=== PATIENT | female | born 1930 | race Caucasian/White ===

== ENCOUNTER → 2016-10-14 | Outpatient (CLI) | payer MEDICARE, OTHER ==
[~2016-10-14] MED LIST: AZIT250T74 PO; CARD120C4 PO; CLON.1 PO; COMB0.2S EACH EYE; FLOV220A INH; LATA0.00 OP; LEVO.125 PO; NEXI10GR PO; NOVO7030P2 SQ; PRED10PA PO; ROSU5 PO; SODI1 PO; TAB-TAB PO; TIMO0.5S29 OP
[2016-10-14 11:15] LABS: HEMATOCRIT 28.4 % (35.0-46.0); MEAN CELL VOLUME 79.9 FL (80.0-100.0); MEAN CORPUSCULAR HEMOGLOBIN 25.6 PG (27.0-34.0); MEAN CORPUSCULAR HGB CONC 32.1 % (32.0-36.0); RED BLOOD COUNT 3.55 MIL/MM3 (4.00-5.30); WHITE BLOOD COUNT 10.3 TH/MM3 (4.0-11.0)
[2016-10-14 11:16] LABS: AUTOMATED NEUTROPHIL # 7.9 TH/MM3 (1.8-7.7); BASOPHIL # 0.1 TH/MM3 (0-0.2); BASOPHIL % 0.6 % (0.0-2.0); EOSINOPHIL # 0.2 TH/MM3 (0-0.4); EOSINOPHIL % 1.6 % (0.0-4.0); HEMO FLAGS DIFF FINAL; LYMPH % 13.7 % (9.0-44.0); LYMPHOCYTE # 1.4 TH/MM3 (1.0-4.8); MONO % 7.5 % (0.0-8.0); NEUT % 76.6 % (16.0-70.0); PLATELET COUNT 471 TH/MM3 (150-450); RED CELL DISTRIBUTION WIDTH 16.3 % (11.6-17.2)
[2016-10-14 11:36] LABS: ALKALINE PHOSPHATASE 138 U/L (45-117); ALT (GPT) 12 U/L (10-53); ANION GAP 9 MEQ/L (5-15); AST (GOT) 14 U/L (15-37); BICARBONATE 27.8 MEQ/L (21.0-32.0); BLOOD UREA NITROGEN 21 MG/DL (7-18); CHLORIDE 98 MEQ/L (98-107); FERRITIN 4 NG/ML (8-252); GLOMERULAR FILTRATION RATE 40 ML/MIN (>89); GLUCOSE,FASTING 131 MG/DL (74-99); HDL CHOLESTEROL 86.4 MG/DL (40.0-60.0); LDL CHOLESTEROL 66 MG/DL (0-99); POTASSIUM 4.3 MEQ/L (3.5-5.1); SODIUM (NA) 135 MEQ/L (136-145); TOTAL BILIRUBIN ADULT 0.2 MG/DL (0.2-1.0)
[2016-10-14 12:12] LABS: HEMOGLOBIN A1a 1.1 %; HEMOGLOBIN A1b 2.2 %; HEMOGLOBIN Ao 82.2 %; HEMOGLOBIN LA1C 2.1 %; HEMOGLOBIN P3 4.5 %
== END ==
LOC: PLAB 08:33
PROVIDERS: ATTEND Family Medicine
DX: E11.42 Type 2 diabetes mellitus with diabetic polyneuropathy (principal); E78.5 Hyperlipidemia, unspecified; I10 Essential (primary) hypertension; E03.9 Hypothyroidism, unspecified; E46 Unspecified protein-calorie malnutrition; E66.9 Obesity, unspecified; E55.9 Vitamin D deficiency, unspecified; D64.9 Anemia, unspecified; Z51.81 Encounter for therapeutic drug level monitoring; Z79.4 Long term (current) use of insulin
CPT/HCPCS: 36415; 80053; 80061; 82306; 82728; 83036; 84443; 85025

== ENCOUNTER → 2016-11-10 | Outpatient (CLI) | payer MEDICARE, OTHER ==
[2016-11-10 10:09] LABS: AUTOMATED NEUTROPHIL # 6.9 TH/MM3 (1.8-7.7); BASOPHIL # 0.1 TH/MM3 (0-0.2); BASOPHIL % 0.7 % (0.0-2.0); EOSINOPHIL # 0.2 TH/MM3 (0-0.4); EOSINOPHIL % 2.3 % (0.0-4.0); HEMATOCRIT 29.6 % (35.0-46.0); HEMO FLAGS DIFF FINAL; LYMPH % 16.8 % (9.0-44.0); LYMPHOCYTE # 1.6 TH/MM3 (1.0-4.8); MEAN CELL VOLUME 79.8 FL (80.0-100.0); MEAN CORPUSCULAR HEMOGLOBIN 25.8 PG (27.0-34.0); MEAN CORPUSCULAR HGB CONC 32.3 % (32.0-36.0); MONO % 7.7 % (0.0-8.0); NEUT % 72.5 % (16.0-70.0); PLATELET COUNT 436 TH/MM3 (150-450); RED CELL DISTRIBUTION WIDTH 16.7 % (11.6-17.2); WHITE BLOOD COUNT 9.5 TH/MM3 (4.0-11.0)
[2016-11-10 10:40] LABS: ANION GAP 8 MEQ/L (5-15); BICARBONATE 28.7 MEQ/L (21.0-32.0); BLOOD UREA NITROGEN 20 MG/DL (7-18); CHLORIDE 97 MEQ/L (98-107); FERRITIN 8 NG/ML (8-252); GLOMERULAR FILTRATION RATE 37 ML/MIN (>89); GLUCOSE,FASTING 131 MG/DL (74-99); POTASSIUM 4.1 MEQ/L (3.5-5.1); SODIUM (NA) 134 MEQ/L (136-145); TRANSFERRIN IRON PROFILE 260 MG/DL (200-360)
== END ==
LOC: PLAB 07:50
PROVIDERS: ATTEND Family Medicine
DX: N18.3 Chronic kidney disease, stage 3 (moderate) (principal); D63.1 Anemia in chronic kidney disease; D50.9 Iron deficiency anemia, unspecified; Z51.81 Encounter for therapeutic drug level monitoring
CPT/HCPCS: 36415; 80048; 82728; 83540; 83550; 83970; 85025

== ENCOUNTER → 2016-12-15 | Outpatient (CLI) | payer MEDICARE, OTHER ==
[2016-12-15 10:53] LABS: AUTOMATED NEUTROPHIL # 7.9 TH/MM3 (1.8-7.7); BASOPHIL % 0.4 % (0.0-2.0); EOSINOPHIL # 0.2 TH/MM3 (0-0.4); EOSINOPHIL % 2.1 % (0.0-4.0); HEMO FLAGS DIFF FINAL; LYMPH % 13.7 % (9.0-44.0); LYMPHOCYTE # 1.4 TH/MM3 (1.0-4.8); MEAN CELL VOLUME 80.7 FL (80.0-100.0); MEAN CORPUSCULAR HEMOGLOBIN 26.1 PG (27.0-34.0); MEAN CORPUSCULAR HGB CONC 32.3 % (32.0-36.0); MONO % 7.5 % (0.0-8.0); NEUT % 76.3 % (16.0-70.0); PLATELET COUNT 366 TH/MM3 (150-450); RED BLOOD COUNT 3.84 MIL/MM3 (4.00-5.30); RED CELL DISTRIBUTION WIDTH 16.8 % (11.6-17.2); WHITE BLOOD COUNT 10.3 TH/MM3 (4.0-11.0)
[2016-12-15 11:29] LABS: WESTERGREN SEDIMENTATION RATE 65 mm/hr (0-30)
[2016-12-15 11:43] LABS: FERRITIN 23 NG/ML (8-252); TRANSFERRIN IRON PROFILE 247 MG/DL (200-360)
[2016-12-15 12:05] LABS: RHEUMATOID FACTOR TRIGGER LESS THAN 10.0 IU/ML (0.0-14.9)
[2016-12-17 13:33] LABS: ANA SCREEN POS (NEG)
== END ==
LOC: PLAB 08:52
PROVIDERS: ATTEND Internal Medicine Hematology
DX: E03.9 Hypothyroidism, unspecified (principal); N18.3 Chronic kidney disease, stage 3 (moderate); D63.1 Anemia in chronic kidney disease; D50.9 Iron deficiency anemia, unspecified; R63.4 Abnormal weight loss; R70.1 Abnormal plasma viscosity
CPT/HCPCS: 36415; 82607; 82728; 82746; 83540; 83550; 84443; 84466; 85025; 85060; 85652; 86038; 86039; 86430

== ENCOUNTER → 2016-12-25 | Outpatient (CLI) | payer MEDICARE, OTHER ==
[2016-12-25 13:14] LABS: AUTOMATED NEUTROPHIL # 8.1 TH/MM3 (1.8-7.7); BASOPHIL # 0.2 TH/MM3 (0-0.2); BASOPHIL % 1.7 % (0.0-2.0); EOSINOPHIL # 0.3 TH/MM3 (0-0.4); EOSINOPHIL % 2.6 % (0.0-4.0); HEMATOCRIT 32.1 % (35.0-46.0); HEMO FLAGS DIFF FINAL; LYMPH % 14.2 % (9.0-44.0); LYMPHOCYTE # 1.5 TH/MM3 (1.0-4.8); MEAN CELL VOLUME 81.6 FL (80.0-100.0); MEAN CORPUSCULAR HEMOGLOBIN 25.9 PG (27.0-34.0); MEAN CORPUSCULAR HGB CONC 31.8 % (32.0-36.0); NEUT % 74.5 % (16.0-70.0); PLATELET COUNT 389 TH/MM3 (150-450); RED BLOOD COUNT 3.93 MIL/MM3 (4.00-5.30); RED CELL DISTRIBUTION WIDTH 17.9 % (11.6-17.2); WHITE BLOOD COUNT 10.9 TH/MM3 (4.0-11.0)
== END ==
LOC: PLAB 08:17
PROVIDERS: ATTEND Internal Medicine Hematology
DX: N18.3 Chronic kidney disease, stage 3 (moderate) (principal); D50.9 Iron deficiency anemia, unspecified
CPT/HCPCS: 36415; 85025

== ENCOUNTER → 2017-02-17 | Outpatient (CLI) | payer MEDICARE, OTHER ==
[2017-02-17 13:04] LABS: AUTOMATED NEUTROPHIL # 8.3 TH/MM3 (1.8-7.7); BASOPHIL # 0.1 TH/MM3 (0-0.2); BASOPHIL % 0.6 % (0.0-2.0); EOSINOPHIL # 0.2 TH/MM3 (0-0.4); HEMATOCRIT 32.6 % (35.0-46.0); HEMO FLAGS DIFF FINAL; LYMPH % 11.9 % (9.0-44.0); LYMPHOCYTE # 1.3 TH/MM3 (1.0-4.8); MEAN CELL VOLUME 83.1 FL (80.0-100.0); MEAN CORPUSCULAR HEMOGLOBIN 27.7 PG (27.0-34.0); MEAN CORPUSCULAR HGB CONC 33.3 % (32.0-36.0); MONO % 8.2 % (0.0-8.0); NEUT % 77.3 % (16.0-70.0); PLATELET COUNT 395 TH/MM3 (150-450); RED BLOOD COUNT 3.92 MIL/MM3 (4.00-5.30); RED CELL DISTRIBUTION WIDTH 16.4 % (11.6-17.2); WHITE BLOOD COUNT 10.8 TH/MM3 (4.0-11.0)
[2017-02-17 13:42] LABS: ANION GAP 8 MEQ/L (5-15); AST (GOT) 12 U/L (15-37); BICARBONATE 29.4 MEQ/L (21.0-32.0); BLOOD UREA NITROGEN 15 MG/DL (7-18); CHLORIDE 98 MEQ/L (98-107); GLOMERULAR FILTRATION RATE 40 ML/MIN (>89); GLUCOSE,FASTING 108 MG/DL (74-99); POTASSIUM 4.2 MEQ/L (3.5-5.1); SODIUM (NA) 135 MEQ/L (136-145)
[2017-02-17 14:08] LABS: ALKALINE PHOSPHATASE 152 U/L (45-117); ALT (GPT) 15 U/L (10-53); FREE T3 2.22 PG/ML (2.18-3.98); FREE T4 1.48 NG/DL (0.76-1.46); HDL CHOLESTEROL 84.4 MG/DL (40.0-60.0); LDL CHOLESTEROL 63 MG/DL (0-99); TOTAL BILIRUBIN ADULT 0.3 MG/DL (0.2-1.0)
[2017-02-17 17:22] LABS: HEMOGLOBIN A1b 2.3 %; HEMOGLOBIN Ao 82.6 %; HEMOGLOBIN LA1C 1.9 %; HEMOGLOBIN P3 4.1 %
== END ==
LOC: PLAB 08:02
PROVIDERS: ATTEND Family Medicine
DX: E53.8 Deficiency of other specified B group vitamins (principal); I12.9 Hypertensive chronic kidney disease with stage 1 through stage 4 chronic kidney disease, or unspecified chronic kidney disease; N18.3 Chronic kidney disease, stage 3 (moderate); E11.42 Type 2 diabetes mellitus with diabetic polyneuropathy; E11.22 Type 2 diabetes mellitus with diabetic chronic kidney disease; D63.1 Anemia in chronic kidney disease; D50.9 Iron deficiency anemia, unspecified; E03.9 Hypothyroidism, unspecified; Z51.81 Encounter for therapeutic drug level monitoring
CPT/HCPCS: 36415; 80053; 80061; 82043; 82306; 82607; 83036; 84439; 84443; 84481; 85025

== ENCOUNTER → 2017-04-15 | Outpatient (CLI) | payer MEDICARE, OTHER ==
[2017-04-15 13:40] LABS: BLOOD, URINE NEG (NEG); GLUCOSE,URINE NEG (NEG); KETONE, URINE NEG (NEG); MUCUS URINE FEW /lpf (OCC); NITRITE,URINE NEG (NEG); SQUAMOUS EPITHELIAL CELL URINE 1 /hpf (0-5); URINE COLOR YELLOW (YELLW/STRAW)
[2017-04-16 23:51] LABS: KAPPA/LAMBDA FREE 1.37 (0.26-1.65)
[2017-04-17 11:51] LABS: HCV RNA PCR IU/ML LESS THAN 15 IU/mL (()); HCV RNA PCR LOGIU/ML LESS THAN 1.18 (())
== END ==
LOC: PLAB 08:26
PROVIDERS: ATTEND Internal Medicine Nephrology
DX: R80.9 Proteinuria, unspecified (principal); N18.3 Chronic kidney disease, stage 3 (moderate); D63.1 Anemia in chronic kidney disease; E55.9 Vitamin D deficiency, unspecified; E87.1 Hypo-osmolality and hyponatremia
CPT/HCPCS: 36415; 81001; 82570; 83883; 84156; 86162; 86335; 87340; 87522

== ENCOUNTER → 2017-06-29 | Outpatient (CLI) | payer MEDICARE, OTHER ==
[2017-06-29 10:34] LABS: ANION GAP 10 MEQ/L (5-15); AST (GOT) 13 U/L (15-37); BICARBONATE 26.9 MEQ/L (21.0-32.0); BLOOD UREA NITROGEN 20 MG/DL (7-18); CHLORIDE 98 MEQ/L (98-107); GLOMERULAR FILTRATION RATE 42 ML/MIN (>89); GLUCOSE,FASTING 113 MG/DL (74-99); SODIUM (NA) 135 MEQ/L (136-145)
[2017-06-29 10:37] LABS: ALKALINE PHOSPHATASE 136 U/L (45-117); ALT (GPT) 14 U/L (10-53); HDL CHOLESTEROL 97.2 MG/DL (40.0-60.0); LDL CHOLESTEROL 41 MG/DL (0-99); LDL CHOLESTEROL DIRECT 69 MG/DL (0-99); TOTAL BILIRUBIN ADULT 0.3 MG/DL (0.2-1.0)
== END ==
LOC: PLAB 07:44
PROVIDERS: ATTEND Family Medicine
DX: E78.5 Hyperlipidemia, unspecified (principal); N18.3 Chronic kidney disease, stage 3 (moderate)
CPT/HCPCS: 36415; 80053; 80061; 82306; 83721; 83970

== ENCOUNTER → 2017-07-08 | Outpatient (CLI) | payer MEDICARE, OTHER ==
[2017-07-08 20:11] LABS: HEMOGLOBIN A1C 7.3 % (4.3-6.0)
== END ==
LOC: PLAB 11:56
PROVIDERS: ATTEND Family Medicine
DX: E03.9 Hypothyroidism, unspecified (principal); E11.9 Type 2 diabetes mellitus without complications
CPT/HCPCS: 36415; 83036; 84443

== ENCOUNTER → 2017-10-20 | Outpatient (CLI) | payer MEDICARE, OTHER ==
[2017-10-20 13:24] LABS: AUTOMATED NEUTROPHIL # 8.3 TH/MM3 (1.8-7.7); BASOPHIL # 0.1 TH/MM3 (0-0.2); BASOPHIL % 0.6 % (0.0-2.0); EOSINOPHIL # 0.3 TH/MM3 (0-0.4); EOSINOPHIL % 2.5 % (0.0-4.0); HEMATOCRIT 32.8 % (35.0-46.0); HEMOGLOBIN 10.9 GM/DL (11.6-15.3); LYMPHOCYTE # 1.4 TH/MM3 (1.0-4.8); MEAN CELL VOLUME 87.4 FL (80.0-100.0); MEAN CORPUSCULAR HGB CONC 33.1 % (32.0-36.0); MEAN PLATELET VOLUME 7.5 FL (7.0-11.0); MONO % 6.6 % (0.0-8.0); MONOCYTE # 0.7 TH/MM3 (0-0.9); NEUT % 77.3 % (16.0-70.0); PLATELET COUNT 380 TH/MM3 (150-450); RED BLOOD COUNT 3.76 MIL/MM3 (4.00-5.30); RED CELL DISTRIBUTION WIDTH 13.9 % (11.6-17.2); WHITE BLOOD COUNT 10.7 TH/MM3 (4.0-11.0)
[2017-10-20 13:38] LABS: BICARBONATE 29.1 MEQ/L (21.0-32.0); CALCIUM 8.5 MG/DL (8.5-10.1); CREATININE 1.39 MG/DL (0.50-1.00); PHOSPHORUS 3.7 MG/DL (2.5-4.9)
[2017-10-20 13:42] LABS: BILIRUBIN, URINE NEG (NEG); BLOOD, URINE NEG (NEG); GLUCOSE,URINE NEG (NEG); KETONE, URINE NEG (NEG); NITRITE,URINE NEG (NEG); SQUAMOUS EPITHELIAL CELL URINE <1 /hpf (0-5); TRANSITIONAL EPI CELLS, URINE <1 /hpf; URINE COLOR LIGHT-YELLOW (YELLW/STRAW); URINE LEUKOCYTE ESTERASE TRACE (NEG)
== END ==
LOC: PLAB 08:15
PROVIDERS: ATTEND Internal Medicine Nephrology
DX: E55.9 Vitamin D deficiency, unspecified (principal); N18.3 Chronic kidney disease, stage 3 (moderate); E87.1 Hypo-osmolality and hyponatremia
CPT/HCPCS: 36415; 80069; 81001; 82306; 82570; 83930; 83935; 83970; 84156; 85025

== ENCOUNTER → 2017-11-03 | Outpatient (CLI) | payer MEDICARE, OTHER ==
[2017-11-03 09:52] LABS: ALBUMIN 2.9 GM/DL (3.4-5.0); AST (GOT) 9 U/L (15-37); BICARBONATE 28.9 MEQ/L (21.0-32.0); BLOOD UREA NITROGEN 22 MG/DL (7-18); CHLORIDE 101 MEQ/L (98-107); CREATININE 1.36 MG/DL (0.50-1.00); GLOMERULAR FILTRATION RATE 37 ML/MIN (>89); GLUCOSE,FASTING 103 MG/DL (74-99); SODIUM (NA) 137 MEQ/L (136-145)
[2017-11-03 09:53] LABS: CHOLESTEROL 142 MG/DL (120-200)
[2017-11-03 10:03] LABS: ALKALINE PHOSPHATASE 147 U/L (45-117); ALT (GPT) 12 U/L (10-53); CHOLESTEROL/ HDL RATIO 1.92 RATIO; HDL CHOLESTEROL 73.9 MG/DL (40.0-60.0); LDL CHOLESTEROL 53 MG/DL (0-99); LDL CHOLESTEROL DIRECT 66 MG/DL (0-99); TOTAL BILIRUBIN ADULT 0.2 MG/DL (0.2-1.0); TOTAL PROTEIN 7.2 GM/DL (6.4-8.2); TRIGLYCERIDES 75 MG/DL (42-150)
[2017-11-03 17:13] LABS: HEMOGLOBIN A1C 7.6 % (4.3-6.0)
== END ==
LOC: PLAB 07:13
PROVIDERS: ATTEND Family Medicine
DX: E03.9 Hypothyroidism, unspecified (principal); E11.9 Type 2 diabetes mellitus without complications; E78.5 Hyperlipidemia, unspecified; I10 Essential (primary) hypertension
CPT/HCPCS: 36415; 80053; 80061; 83036; 83721; 84443

== ENCOUNTER → 2018-03-10 | Outpatient (CLI) | payer MEDICARE, OTHER ==
[2018-03-10 10:48] LABS: ALBUMIN 2.9 GM/DL (3.4-5.0); ALT (GPT) 11 U/L (10-53); AST (GOT) 12 U/L (15-37); BICARBONATE 26.5 MEQ/L (21.0-32.0); BLOOD UREA NITROGEN 25 MG/DL (7-18); CALCIUM 8.5 MG/DL (8.5-10.1); CHLORIDE 103 MEQ/L (98-107); CHOLESTEROL 143 MG/DL (120-200); CREATININE 1.42 MG/DL (0.50-1.00); GLOMERULAR FILTRATION RATE 35 ML/MIN (>89); GLUCOSE,FASTING 113 MG/DL (74-99); SODIUM (NA) 137 MEQ/L (136-145)
[2018-03-10 10:58] LABS: ALKALINE PHOSPHATASE 143 U/L (45-117); CHOLESTEROL/ HDL RATIO 1.95 RATIO; HDL CHOLESTEROL 73.1 MG/DL (40.0-60.0); LDL CHOLESTEROL 52 MG/DL (0-99); LDL CHOLESTEROL DIRECT 59 MG/DL (0-99); TOTAL BILIRUBIN ADULT 0.3 MG/DL (0.2-1.0); TOTAL PROTEIN 7.1 GM/DL (6.4-8.2); TRIGLYCERIDES 89 MG/DL (42-150)
[2018-03-10 14:44] LABS: HEMOGLOBIN A1C 7.5 % (4.3-6.0)
== END ==
LOC: PLAB 07:57
PROVIDERS: ATTEND Family Medicine
DX: E78.5 Hyperlipidemia, unspecified (principal); E11.9 Type 2 diabetes mellitus without complications; E03.9 Hypothyroidism, unspecified
CPT/HCPCS: 36415; 80053; 80061; 83036; 83721; 84443

== ENCOUNTER 2018-05-30 06:46 | Observation (INO) ==
--- NOTE | 2018-05-30 07:10 | ED ---
HPI General Chief complaint: Chest Pain Stated complaint: Rib pain x 30 min,short of breath Time Seen by Provider: 05/30/18 06:59 History of Present Illness HPI narrative: 88-year-old female with history of insulin-dependent diabetes, hypertension, here with her for evaluation of chest pain. The pain started about 30 minutes prior to arrival and has been intermittent, left-sided , pressure-like, nonradiating. Currently the patient is chest pain-free. There are no modifying factors. She feels slightly short of breath when she experiences the pain. The patient's administered 2 doses of his own sublingual nitroglycerin which seemed to help the pain. Pain is not associated with diaphoresis. No fevers, chills, cough, or recent illness. No recent travel or immobilization. No history of DVT or PE. No paresthesias or motor deficits. 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 Montes De Oca, but denies significant cardiac disease. Related Data Home Medications Medication Instructions Recorded Confirmed atorvastatin 10 mg PO DAILY 05/30/18 05/30/18 brimonidine-timolol [Combigan] 1 drp OPHTHALMIC (EYE) Q12H 05/30/18 05/30/18 diltiazem HCl 120 mg PO QPM 05/30/18 05/30/18 diltiazem HCl 240 mg PO QAM 05/30/18 05/30/18 ergocalciferol (vitamin D2) 50,000 unit PO QWEEK 05/30/18 05/30/18 [Vitamin D2] esomeprazole magnesium [Nexium] 40 mg PO DAILY PRN 05/30/18 05/30/18 insulin asp prt-insulin aspart 10 unit SUB-Q QPM 05/30/18 05/30/18 [Novolog Mix 70-30FlexPen U-100] insulin asp prt-insulin aspart 20 unit SUB-Q QAM 05/30/18 05/30/18 [Novolog Mix 70-30FlexPen U-100] iron fum,ps cmplx-vit C-niacin 1 cap PO DAILY 05/30/18 05/30/18 [Integra] latanoprost 1 drp OPHTHALMIC (EYE) QPM 18 05/30/18 levothyroxine 137 mcg PO QAM 09/16/18 09/16/18 losartan 25 mg PO DAILY 05/30/18 05/30/18 sodium chloride 1 gm PO 2XWEEK 05/30/18 05/30/18 Allergies Allergy/AdvReac Type Severity Reaction Status Date / Time cortisone AdvReac Mild Swelling Verified 05/30/18 07:15 Review of Systems ROS: all other systems reviewed are negative [facility] Medical History Medical History Anemia (Acute) Diabetes (Acute) GERD (gastroesophageal reflux disease) (Acute) Glaucoma (Acute) High cholesterol (Acute) Hypertension (Acute) Hypothyroid (Acute) Social History Social History Substance History: No History of Abuse Second Hand Smoke Exposure: No Smoking Status: Never smoker How Often Do You Have a Drink Containing Alcohol: Never Recent Travel in [facility] within the Last 8 Weeks: No Recent Out of Country Travel within the Last 8 Weeks: No Exam Narrative Exam Narrative: GENERAL: Well-developed, well-nourished, pleasant, comfortable, no apparent distress. SKIN: Focused skin assessment warm/dry. HEAD: Atraumatic. Normocephalic. EYES: Pupils equal and round. No scleral icterus. No injection or drainage. ENT: Mucous membranes pink and moist. NECK: Trachea midline. No JVD. CARDIOVASCULAR: Regular rate and rhythm. Distal pulses brisk and equal bilaterally. RESPIRATORY: No accessory muscle use. Clear to auscultation. Breath sounds equal bilaterally. GASTROINTESTINAL: Abdomen soft, non-tender, nondistended. MUSCULOSKELETAL: No obvious deformities. No clubbing. No cyanosis. No edema. NEUROLOGICAL: Awake and alert. No obvious cranial nerve deficits. Motor grossly within normal limits. Normal speech. PSYCHIATRIC: Appropriate mood and affect; insight and judgment normal. Course Initial Documented Vital Signs Temperature 97.9 F 05/30/18 06:51 Pulse Rate 69 05/30/18 06:51 Respiratory Rate 20 05/30/18 06:51 Blood Pressure 217/88 H 05/30/18 06:51 Pulse Oximetry 96 05/30/18 06:51 Last Documented Vital Signs Temperature 97.9 F 05/30/18 07:00 Pulse Rate 64 05/30/18 08:11 Respiratory Rate 20 05/30/18 08:11 Blood Pressure 184/99 H 05/30/18 08:11 Pulse Oximetry 96 05/30/18 08:11 Medical Decision Making MDM Narrative Medical decision making narrative: Labs, vitals, and imaging studies were reviewed and were reviewed with the patient and the patient's family. CBC shows a slight anemia is around the patient's baseline. CMP is remarkable for slight renal insufficiency which is also around the patient's baseline with a creatinine of 1.3. Cardiac enzymes are negative. Chest x-ray shows no acute disease. EKG shows no signs of ischemia. The patient has several cardiac risk factors. She did experience a couple more episodes of chest pain while in the emergency department that lasted for several seconds, then resolved. She is not in any respiratory distress. Her blood pressure was elevated upon arrival to the emergency department. She had not yet taken her morning antihypertensive medications. She was allowed to take these medications in the emergency department, and her blood pressure slightly improved. Given her cardiac risk factors, she will be admitted to the chest pain center for further cardiac evaluation. She is amenable to this plan. Case discussed with hospitalist Dr. Robledo who will admit the patient to his service. Medical Screen Exam Complete: Yes Emergency Medical Condition: Yes Differential Diagnosis Differential Diagnosis: ACS, pneumothorax, pericarditis, PE, pneumonia Lab Data Result diagrams: 05/30/18 07:32 05/30/18 07:32 Lab Results 05/30/18 05/30/18 05/30/18 Range/Units 07:32 07:32 07:32 CBC w Diff Auto diff final WBC 12.4 H (4.0-11.0) th/mm3 RBC 3.71 L (4.00-5.30) mil/mm3 Hgb 10.5 L (11.6-15.3) gm/dL Hct 31.6 L (35.0-46.0) % MCV 85.1 (80.0-100.0) fL MCH 28.3 (27.0-34.0) pg MCHC 33.3 (32.0-36.0) % RDW 13.9 (11.6-17.2) % Plt Count 428 (150-450) th/mm3 MPV 7.7 (7.0-11.0) fL Neut % (Auto) 76.1 H (16.0-70.0) % Lymph % (Auto) 12.4 (9.0-44.0) % [place] % (Auto) 6.3 (0.0-8.0) % Eos % (Auto) 2.9 (0.0-4.0) % Baso % (Auto) 2.3 H (0.0-2.0) % Neut # (Auto) 9.4 H (1.8-7.7) th/mm3 Lymph # (Auto) 1.5 (1.0-4.8) th/mm3 [place] # (Auto) 0.8 (0.0-0.9) th/mm3 Eos # (Auto) 0.4 (0.0-0.4) th/mm3 Baso # (Auto) 0.3 H (0.0-0.2) th/mm3 WBC Differential . Differential Comment . PT 11.0 (9.8-11.6) sec INR 1.1 Ratio APTT 26.4 (24.3-30.1) sec Sodium 134 L (136-145) meq/L Potassium 4.7 (3.5-5.1) meq/L Chloride 102 (98-107) meq/L Carbon Dioxide 25.3 (21.0-32.0) meq/L Anion Gap 7 (5-15) meq/L BUN 28 H (7-18) mg/dL Creatinine 1.60 H (0.50-1.00) mg/dL Estimated GFR 30 L (>89) mL/min Random Glucose 180 H (74-106) mg/dL Calcium 8.4 L (8.5-10.1) mg/dL Total Bilirubin 0.2 (0.2-1.0) mg/dL AST 15 (15-37) U/L ALT 14 (10-53) U/L Alkaline Phosphatase 146 H (45-117) U/L Total Creatine Kinase 41 (26-192) U/L Troponin I Less than 0.02 L (0.02-0.05) ng/mL Total Protein 7.4 (6.4-8.2) g/dL Albumin 3.0 L (3.4-5.0) g/dL Imaging Data Radiologist's impression: Chest X-Ray 05/30/18 07:05 CONCLUSION: Negative examination. ECG Data Attestation: I personally reviewed and interpreted this ECG as follows: Discharge Plan Discharge Disposition Patient Disposition: 30 Still Patient Discharge Condition Condition: Stable Discharge Details Diagnosis: Chest pain Physicians Team ED Provider: Cornell Santo Primary Care Provider: Sudhir Borden Rxs /Orders / Referrals /Forms Prescriptions: No Action latanoprost 0.005 % Drops 1 drp OPHTHALMIC (EYE) QPM RF: 0 levothyroxine 137 mcg Tablet 137 mcg PO QAM RF: 0 atorvastatin 10 mg Tablet 10 mg PO DAILY RF: 0 sodium chloride 1 gram Tablet 1 gm PO 2XWEEK RF: 0 diltiazem HCl 120 mg Tablet 120 mg PO QPM RF: 0 diltiazem HCl 120 mg Tablet 240 mg PO QAM RF: 0 esomeprazole magnesium [Nexium] 40 mg Capsule,Delayed Release(Dr/Ec) 40 mg PO DAILY PRN (Reason: Acid Reflux) RF: 0 losartan 25 mg Tablet 25 mg PO DAILY RF: 0 ergocalciferol (vitamin D2) [Vitamin D2] 50,000 unit Capsule 50,000 unit PO QWEEK RF: 0 insulin asp prt-insulin aspart [Novolog Mix 70-30FlexPen U-100] 100 unit/mL ( 70-30) Insulin Pen 10 unit SUB-Q QPM RF: 0 insulin asp prt-insulin aspart [Novolog Mix 70-30FlexPen U-100] 100 unit/mL ( 70-30) Insulin Pen 20 unit SUB-Q QAM RF: 0 brimonidine-timolol [Combigan] 0.2-0.5 % Drops 1 drp OPHTHALMIC (EYE) Q12H RF: 0 iron fum,ps cmplx-vit C-niacin [Integra] 125-40-3 mg Capsule 1 cap PO DAILY RF: 0 Discharge Instructions Patient Printed Instructions: Chest Pain (ED) Discharge Interventions Interventions: Vital Signs Last Done: 05/30/18 08:11 Status ED Status: With Doctor
--- NOTE | 2018-05-30 07:35 | XR ---
EXAM DATE: 05/30/2018 7:24 AM EDT AGE/SEX: 88 years / Female INDICATIONS: Chest pain CLINICAL DATA: This is the patient's initial encounter. Patient reports that signs and symptoms have been present for 1 day and indicates a pain score of 5/10. MEDICAL/SURGICAL HISTORY: Diabetes mellitus type II. Abdominal aortic aneurysm repair. COMPARISON: POI, XR CHEST PA AND LAT, 12/07/2017. . FINDINGS: A single AP view of the chest demonstrates the lungs to be symmetrically aerated without evidence of mass, infiltrate or effusion. The cardiomediastinal contours are unremarkable. Osseous structures a re intact. Hiatal hernia. CONCLUSION: Negative examination. Electronically signed by: Connor Mata MD 05/30/2018 7:33 AM EDT
[2018-05-30 07:40] LABS: Baso # (Auto) 0.3 th/mm3 (0.0-0.2); Baso % (Auto) 2.3 % (0.0-2.0); Eos # (Auto) 0.4 th/mm3 (0.0-0.4); Eos % (Auto) 2.9 % (0.0-4.0); Hematocrit 31.6 % (35.0-46.0); Hemoglobin 10.5 gm/dL (11.6-15.3); Lymph # (Auto) 1.5 th/mm3 (1.0-4.8); Lymph % (Auto) 12.4 % (9.0-44.0); Mean Corpuscular HGB Conc 33.3 % (32.0-36.0); Mean Corpuscular Hemoglobin 28.3 pg (27.0-34.0); Mean Corpuscular Volume 85.1 fL (80.0-100.0); Mean Platelet Volume 7.7 fL (7.0-11.0); Mono # (Auto) 0.8 th/mm3 (0.0-0.9); Mono % (Auto) 6.3 % (0.0-8.0); Neut # (Auto) 9.4 th/mm3 (1.8-7.7); Neut % (Auto) 76.1 % (16.0-70.0); Platelet Count 428 th/mm3 (150-450); Red Blood Count 3.71 mil/mm3 (4.00-5.30); Red Cell Distribution Width 13.9 % (11.6-17.2); White Blood Count 12.4 th/mm3 (4.0-11.0)
[2018-05-30 07:48] LABS: Chloride 102 meq/L (98-107); Potassium 4.7 meq/L (3.5-5.1); Sodium 134 meq/L (136-145)
[2018-05-30 07:52] LABS: Activated Partial Thrombo Time 26.4 sec (24.3-30.1); Anion Gap 7 meq/L (5-15); Calcium 8.4 mg/dL (8.5-10.1); Carbon Dioxide 25.3 meq/L (21.0-32.0); Glucose,Random 180 mg/dL (74-106); INR 1.1 Ratio
[2018-05-30 07:53] LABS: Blood Urea Nitrogen 28 mg/dL (7-18)
[2018-05-30 07:55] LABS: Alanine Aminotransferase 14 U/L (10-53); Aspartate Aminotransferase 15 U/L (15-37)
[2018-05-30 07:56] LABS: Glomerular Filtration Rate 30 mL/min (>89)
[2018-05-30 07:57] LABS: Total Protein 7.4 g/dL (6.4-8.2)
[2018-05-30 07:58] LABS: Alkaline Phosphatase 146 U/L (45-117)
[2018-05-30 07:59] LABS: Creatine Kinase 41 U/L (26-192)
[2018-05-30] MEDS ORDERED: Morphine Inj 4 MG/ML Vial IV.PUSH PRN (08:53)
[2018-05-30] MEDS ORDERED: Acetaminophen 500 MG Tablet PO PRN (08:53)
[2018-05-30] MEDS ORDERED: Dextrose 50% in Water 50 ML Vial IV.PUSH PRN (08:56)
--- NOTE | 2018-05-30 09:18 | P.HPIM ---
History of Present Illness Service: [facility] Primary Care Physician: Sudhir Borden MD Chief Complaint: Chest pain History of Present Illness: Mrs. Ibarra is a 88 yo F with PMH DM, HTN, hyperlipidemia who presented to [facility] with chest pain. Patient states that her pain started this morning at 6 am when laying in bed. Pain lasts for several seconds at a time and occurs every ~5 minutes in the center of her chest. Patient denies history of similar pain; she reports that she generally walks and exerts herself without pain. No shortness of breath, sweating, nausea/vomiting. She does not report headache, nor new numbness/ tingling/weakness. She has chronic tingling in lower extremities which she attributes to DM. She reports leg swelling when she stands but that this is chronic for her. She reports chronic tiredness. Patient states that she was seen several months previously by her Asphalt Heater Tender Dr. Montes De Oca; she states that she had plans for stress testing but did not obtain. Patient states that her BP is generally controlled at home. - Diagnosis (1) Diabetes (2) Severe hypertension (3) Chest pain Review of Systems Constitutional: Denies chills, Denies fatigue Eyes: Denies blurry vision, Denies loss of vision Ears, Nose, Mouth, and Throat: Denies nasal congestion, Denies sinus pain Cardiovascular: Reports chest pain, Denies shortness of breath Respiratory: Denies shortness of breath, Denies wheezing Gastrointestinal: Denies abdominal pain, Denies nausea, Denies vomiting Genitourinary: Denies urinary incontinence, Denies urinary urgency Skin/Breast: Denies rash, Denies sores Neurologic: Reports tingling (chronic from DM), Reports weakness Psychiatric: Denies anxiety, Denies depression Hematologic/Lymphatic: Denies easy bleeding, Denies easy bruising Allergic/Immunologic: Denies seasonal runny nose, Denies wheezing PMFSH - History History Provided By: Patient - Medical History Medical History: Medical History (Last Updated 05/30/18 @ 07:14 by Alisha Dickinson RN) Anemia Diabetes GERD (gastroesophageal reflux disease) Glaucoma High cholesterol Hypertension Hypothyroid - Surgical History Surgical History: Surgical History (Last Updated 05/30/18 @ 14:19 by Brien Robledo MD) No pertinent past surgical history - Family History Family History: Family History (Last Updated 05/30/18 @ 14:19 by Brien Robledo MD) Other No pertinent family history - Social History I have reviewed the patient's Social History: Yes - Tobacco History Second Hand Smoke Exposure: No Tobacco Use In Past 30 Days: No Smoking Status: Never smoker - Alcohol History How Often Do You Have a Drink Containing Alcohol: Never - Substance Use History Substance History: No History of Abuse - Travel History Recent Travel in the [place] Within the Last 8 Weeks: No Recent Travel Out of the Country Within the Last 8 Weeks: No - Immunization History Tetanus Immunization: <5 Years Hx Influenza Vaccine This Season: No Medications and Allergies Active Medications: Active Medications Acetaminophen (Tylenol) 500 mg PO Q4H PRN PRN Reason: HEADACHE Hydrocodone Bitart/Acetaminophen ([place]ing 7.5/325) 1 tab PO Q4H PRN PRN Reason: PAIN SCALE 1 TO 7 Aspirin (Aspirin) 325 mg PO DAILY [facility] Atorvastatin Calcium (Lipitor) 10 mg PO DAILY [facility] Dextrose (D50w Vial) 50 ml IV.PUSH UNSCH PRN PRN Reason: PER HYPOGLYCEMIA PROTOCOL Diltiazem HCl (Cardizem Cd 24hr) 120 mg PO DAILY@2100 [facility] Diltiazem HCl (Cardizem Cd 24hr) 240 mg PO DAILY [facility] Glucagon (Glucagon Inj) 1 mg OTHER PRN PRN PRN Reason: for Hypoglycemia Protocol Insulin Aspart (Novolog Insulin Correctional Sugar Inj) 0 unit SQ ACHS DEBBIE; Protocol Levothyroxine Sodium (Synthroid) 112 mcg PO DAILY@0600 [facility] Levothyroxine Sodium (Synthroid) 25 mcg PO DAILY@0600 [facility] Losartan Potassium (Cozaar) 25 mg PO DAILY [facility] Morphine Sulfate (Morphine Inj) 2 mg IV.PUSH Q4H PRN PRN Reason: PAIN SCALE 8 TO 10 Nitroglycerin (Nitrostat Sl) 0.4 mg SL Q5M PRN PRN Reason: CHEST PAIN Non-Formulary Medication (Brimonidine-Timolol [Combigan]) 1 drp EACH EYE Q12H [facility] Ondansetron HCl (Zofran Inj) 4 mg IV.PUSH Q6H PRN PRN Reason: NAUSEA Pantoprazole Sodium (Protonix) 40 mg PO DAILY PRN PRN Reason: ACID REFLUX Sodium Chloride (Ns Flush) 2 ml IV.FLUSH BID DEBBIE Sodium Chloride (Ns Flush) 2 ml IV.FLUSH PRN PRN PRN Reason: FLUSH AFTER USING IV ACCESS Sodium Chloride (Sodium Chloride) 1 gm PO MoTh@0900 DEBBIE Allergies Allergy/AdvReac Type Severity Reaction Status Date / Time cortisone AdvReac Mild Swelling Verified 05/30/18 07:15 Home Medications Medication Instructions Recorded Confirmed Type atorvastatin 10 mg PO DAILY 05/30/18 05/30/18 History brimonidine-timolol [Combigan] 1 drp OPHTHALMIC (EYE) Q12H 05/30/18 05/30/18 History diltiazem HCl 120 mg PO QPM 05/30/18 05/30/18 History diltiazem HCl 240 mg PO QAM 05/30/18 05/30/18 History ergocalciferol (vitamin D2) 50,000 unit PO QWEEK 05/30/18 05/30/18 History [Vitamin D2] esomeprazole magnesium [Nexium] 40 mg PO DAILY PRN 05/30/18 05/30/18 History insulin asp prt-insulin aspart 10 unit SUB-Q QPM 05/30/18 05/30/18 History [Novolog Mix 70-30FlexPen U-100] insulin asp prt-insulin aspart 20 unit SUB-Q QAM 05/30/18 05/30/18 History [Novolog Mix 70-30FlexPen U-100] iron fum,ps cmplx-vit C-niacin 1 cap PO DAILY 05/30/18 05/30/18 History [Integra] latanoprost 1 drp OPHTHALMIC (EYE) QPM 05/30/18 05/30/18 History levothyroxine 137 mcg PO QAM 05/30/18 05/30/18 History losartan 25 mg PO DAILY 05/30/18 05/30/18 History sodium chloride 1 gm PO 2XWEEK 05/30/18 05/30/18 History Exam Vital signs: Vital Signs 05/30/18 06:51 05/30/18 07:00 05/30/18 07:10 Temperature 97.9 F 97.9 F Pulse Rate 69 69 62 Respiratory Rate 20 20 20 Blood Pressure 217/88 H 217/88 H 208/108 H Pulse Oximetry 96 96 98 05/30/18 07:15 05/30/18 08:11 Temperature Pulse Rate 69 64 Respiratory Rate 20 Blood Pressure 184/99 H Pulse Oximetry 95 96 Intake & Output 05/29/18 05/30/18 05/30/18 18:59 06:59 18:59 Weight 81 kg 81 kg Narrative: General: No acute distress Eyes: EOM grossly I HENT: Normal mucus membranes Skin: No visible lesions Neck: No appreciated thyromegaly or lymphadenopathy CV: Regular rate and rhythm; normal perfusion. Chest: No pain to touch or visible rashes Resp: CTAB; normal rate Abdomen/Back: Normal BS. Nontender to palpation Ext: Grossly normal ROM and motor function Neuro: Awake/alert. Grossly normal CN. Grossly normal peripheral motor/sensory function Results - Labs CBC & Chem 7: 05/30/18 07:32 05/30/18 07:32 Labs: Short CBC 05/30/18 Range/Units 07:32 WBC 12.4 H (4.0-11.0) th/mm3 Hgb 10.5 L (11.6-15.3) gm/dL Hct 31.6 L (35.0-46.0) % Plt Count 428 (150-450) th/mm3 BMP 05/30/18 07:32 Sodium 134 L Potassium 4.7 Chloride 102 Carbon Dioxide 25.3 BUN 28 H Creatinine 1.60 H Calcium 8.4 L Cardiac Enzymes 05/30/18 Range/Units 07:32 Total Creatine Kinase 41 (26-192) U/L Troponin I Less than 0.02 L (0.02-0.05) ng/mL Liver Function 05/30/18 Range/Units 07:32 Total Bilirubin 0.2 (0.2-1.0) mg/dL AST 15 (15-37) U/L ALT 14 (10-53) U/L Alkaline Phosphatase 146 H (45-117) U/L Albumin 3.0 L (3.4-5.0) g/dL - Imaging Impressions Chest X-Ray 05/30/18 07:05 CONCLUSION: Negative examination. Caprini VTE Risk Assessment Caprini VTE Risk Assessment: Moderate/High Risk (score >= 2) Caprini Risk Assessment Model: Point Value = 1 Point Value = 2 Point Value = 3 Point Value = 5 Age 41-60 Minor surgery BMI > 25 kg/m2 Swollen legs Varicose veins or History of unexplained or recurrent spontaneous Oral contraceptives or hormone replacement Sepsis (< 1 month) Serious lung disease, including pneumonia (< 1 month) Abnormal pulmonary function Acute myocardial infarction Congestive heart failure (< 1 month) History of inflammatory bowel disease Medical patient at bed rest Age 61-74 Arthroscopic surgery Major open surgery (> 45 min) Laparoscopic surgery (> 45 min) Malignancy Confined to bed (> 72 hours) Immobilizing plaster cast Central venous access Age >= 75 History of VTE Family history of VTE Factor V Leiden Prothrombin 52764P Lupus anticoagulant Anticardiolipin antibodies Elevated serum homocysteine Heparin-induced thrombocytopenia Other congenital or acquired thrombophilia Stroke (< 1 month) Elective arthroplasty Hip, pelvis, or leg fracture Acute spinal cord injury (< 1 month) Prophylaxis Regimen: Total Risk Factor Score Risk Level Prophylaxis Regimen 0-1 Low Early ambulation 2 Moderate Order ONE of the following: *Sequential Compression Device (SCD) *Heparin 5000 units SQ BID 3-4 Higher Order ONE of the following medications: *Heparin 5000 units SQ TID *Enoxaparin/Lovenox 40 mg SQ daily (WT < 150 kg, CrCl > 30 mL/min) *Enoxaparin/Lovenox 30 mg SQ daily (WT < 150 kg, CrCl > 10-29 mL/min) *Enoxaparin/Lovenox 30 mg SQ BID (WT < 150 kg, CrCl > 30 mL/min) AND/OR *Sequential Compression Device (SCD) 5 or more Highest Order ONE of the following medications: *Heparin 5000 units SQ TID (Preferred with Epidurals) *Enoxaparin/Lovenox 40 mg SQ daily (WT < 150 kg, CrCl > 30 mL/min) *Enoxaparin/Lovenox 30 mg SQ daily (WT < 150 kg, CrCl > 10-29 mL/min) *Enoxaparin/Lovenox 30 mg SQ BID (WT < 150 kg, CrCl > 30 mL/min) AND *Sequential Compression Device (SCD) Assessment and Plan - Assessment (1) Diabetes Code(s): E11.9 - Type 2 diabetes mellitus without complications Status: Acute (2) Severe hypertension Code(s): I10 - Essential (primary) hypertension Status: Acute (3) Chest pain Code(s): R07.9 - Chest pain, unspecified Status: Acute - Plan Mrs. Ibarra is a 88 F with: Chest pain Impression: lasting seconds at a time q 5 min this morning. Possible contribution by BP elevation Initial troponin and EKG negative CXR unremarkable Risks of DM, HTN, hyperlipidemia -Continue to monitor VS, O2 saturations -Continue PRN pain control -Will rule out ACS -troponin, EKG reassuring x2 -Continue telemetry -Continue BP control -Continue statin -Continue ASA 81mg -Discussed with Cardiology; had stress scheduled 01/2018 which patient declined. Will plan for stress after BP controlled if patient agreeable HTN Impression: Hypertensive urgency in ED; 217/88. Has had persistent SBP elevation ~200/90 since. Presumably asymptomatic (no troponin elevation or EKG changes; Cr elevated but is elevated at baseline; no headache or neuro signs) -Continue frequent VS -Will increase Losartan to 50mg BID per discussion with Cardiology -Continue Diltiazem 240mg AM, 120mg PM -Will give PRN Enalapril and Hydralazine -If concern for emergency, will transfer for ICU; discussed this possibility with patient and family DM Impression: On home Novolog 70/30 20 U AM, 10 U PM -Will give low dose SS insulin with accuchecks while inpatient Hypothyroidism -Continue home Levothyroxine 25 mcg DVT PPX -SCD's Code Status: Full code Discharge Planning: Anticipate discharge tomorrow after BP control (3) Chest pain Qualifiers: Chest pain type: unspecified Qualified Code(s): R07.9 - Chest pain, unspecified
[2018-05-30] MEDS ORDERED: Levothyroxine 112 MCG Tablet PO SCH (10:00)
[2018-05-30] MEDS ORDERED: dilTIAZem CD 240 MG Capsule PO SCH ×3 (10:00→12:00)
[2018-05-30 11:00] LABS: Creatine Kinase 36 U/L (26-192)
[2018-05-30] MEDS: Brimonidine 0.2% Opth Drops 5 ML Bottle EACH EYE SCH ×2 (11:09→21:02)
[2018-05-30] MEDS: Timolol 0.5% Drops 5 ML Bottle EACH EYE SCH ×2 (11:09→21:03)
[2018-05-30] MEDS: Insulin NovoLOG Aspart Correctional Sugar Inj SQ SCH ×3 (11:32→20:36)
[2018-05-30] MEDS ORDERED: dilTIAZem CD 120 MG Capsule PO SCH ×3 (12:00→21:00)
--- NOTE | 2018-05-30 13:54 | ECG ---
Date Performed: 05/30/2018 Time Performed: 10:25:33 PTAGE: 88 years EKG: Sinus rhythm WITH SINUS ARRHYTHMIA WITH FIRST DEGREE AV BLOCK ABNORMAL ECG PREVIOUS TRACING : 05/30/2018 07.12 DOCTOR: Rosemary Felix Interpretating Date/Time 05/30/2018 13:52:02
--- NOTE | 2018-05-30 13:55 | ECG ---
Date Performed: 05/30/2018 Time Performed: 07:12:49 PTAGE: 88 years EKG: Sinus rhythm WITH FIRST DEGREE AV BLOCK ABNORMAL ECG PREVIOUS TRACING : 09/09/2015 05.32 DOCTOR: Rosemary Felix Interpretating Date/Time 05/30/2018 13:54:56
[2018-05-30] MEDS ORDERED: hydrALAZINE 10 MG Tablet PO PRN (14:10)
[2018-05-30 14:34] LABS: Creatine Kinase 39 U/L (26-192)
[2018-05-30] MEDS ORDERED: Latanoprost 0.005% Opth Drops 2.5 ML Bottle EACH EYE SCH (18:00)
[2018-05-30 20:27] VITALS: BP 136/54; PULSE 66; RESP 20; TEMP 96.8
[2018-05-30 21:39] VITALS: O2SAT 95
[2018-05-31] MEDS ORDERED: Non-Formulary Drug (Levothyroxine [Levothyroxine] 137 MCG) PO SCH (06:00)
[2018-05-31] MEDS ORDERED: Sodium Chloride 1 GM Tablet PO SCH (09:00)
[2018-05-31] MEDS ORDERED: INTEGRA PO SCH (09:00)
[2018-05-31] MEDS ORDERED: Aspirin 325 MG Tablet PO SCH (09:00)
--- NOTE | 2018-05-31 19:28 | ECG ---
Date Performed: 05/30/2018 Time Performed: 13:32:15 PTAGE: 88 years EKG: Sinus rhythm WITH FIRST DEGREE AV BLOCK ABNORMAL ECG PREVIOUS TRACING : 05/30/2018 10.25 Since the previous tracing, no significant change noted DOCTOR: Bambi Quinones Interpretating Date/Time 05/31/2018 19:26:41
== END 2018-05-30 21:49 | disposition home or self-care (01) ==
LOC: PHEDA 06:46 → PHED 06:46 → PH3 09:30
PROVIDERS: ADMIT Family Medicine; ATTEND Family Medicine
DX: R07.9 Chest pain, unspecified; D64.9 Anemia, unspecified; Z79.82 Long term (current) use of aspirin; Z79.4 Long term (current) use of insulin; K21.9 Gastro-esophageal reflux disease without esophagitis; I10 Essential (primary) hypertension; E11.9 Type 2 diabetes mellitus without complications; H40.9 Unspecified glaucoma; R94.31 Abnormal electrocardiogram [ECG] [EKG]; E78.5 Hyperlipidemia, unspecified; E03.9 Hypothyroidism, unspecified; E78.00 Pure hypercholesterolemia, unspecified